=== PATIENT | female | born 1975 | race Caucasian/White ===

== ENCOUNTER 2017-12-31 10:12 | Inpatient (IN) ==
[2017-12-31] MEDS ORDERED: cefOXitin 2,000 MG in Water for inj. (sterile) 20 ML 10 ML IVP ONE (10:45)
[2017-12-31] MEDS ORDERED: Ringers Solution, Lactated 1,000 ML IVC SCH (10:45)
[2017-12-31] MEDS ORDERED: Albuterol 2.5 MG/3 ML NEBULIZER IH ONE (10:45)
--- NOTE | 2017-12-31 11:04 | History & Physical Report ---
Date of Encounter: 12/31/17 Time of Encounter: 11:04 24 Hour HP Update - Instructions Instructions: If the History and Physical is less than 30 days old and was completed prior to A.M. admission and or procedure and has NOT been updated on calendar day of procedure please complete this update prior to performing procedure. - Update Patient reports changes in Medical Condition: No Changes in examination, assessment, or condition: No Changes in Medication: No Preop tests/diagnostics Reviewed: Yes Surgery Remains Indicated: Yes Consent for Planned Operative Procedure(s) Verified: Yes - Pre-Operative Checklist Preoperative Checklist Indicated: Yes Prophylactic Antibiotic Ordered: Yes Home Medications Include Beta Foster: No
--- NOTE | 2017-12-31 11:26 | Anesthesia Evaluation PreOp ---
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: Denies Any Significant HX Other Medical History: Renal (Medullary kidney disease) Anesthesia History: No Prior Anesthetic Complications, Past Anesthesia (BMT) : No Test: Negative Alcohol Use: none Drug use: none Medications and Allergies Cranberry Fruit Extract [Cranberry] 250 mg PO DAILY 12/01/17 [History] Multivitamin [One Daily Essential] 1 tab PO DAILY 12/01/17 [History] Ibuprofen [Motrin] 800 mg PO Q8HR PRN 12/31/17 [History] 3 Allergy/AdvReac Type Severity Reaction Status Date / Time Sulfa (Sulfonamide AdvReac Joint Pain Verified 12/31/17 10:41 Antibiotics) - Meds/Allergy Pre-op Review Medications Reviewed: Yes Allergies Reviewed: Yes Beta Blockers on Current Med List: No Anesthesia Results - Labs Laboratory Tests 12/03/17 12/03/17 12/10/17 11:01 11:01 10:18 Hgb 14.2 Hct 41.5 Plt Count 365 Sodium 138 Potassium 4.0 BUN 10 Creatinine 0.82 Calcium 9.1 Total Bilirubin 0.4 AST 38 ALT 50 Alkaline Phosphatase 55 Serum Total Protein 7.1 Albumin 4.3 Globulin 2.8 Carcinoembryonic Ag 3.3 Urine Test Negative Anesthesia Exam Vital Signs/O2 Sat/Glucose, Most Recent Temp Pulse Resp BP Pulse Ox 98.5 F 96 18 120/72 98 12/31/17 10:43 12/31/17 10:43 12/31/17 10:48 12/31/17 10:48 12/31/17 10:48 Weight: 83 kg .....BMI 26 NPO (# of Hours): >8 hrs - HEENT Mallampati: I Teeth: Normal - Cardiac Rhythm: Regular - Pulmonary Breath Sounds: bilateral Clear Anesthesia Assess/Plan ASA Score: 2 Modified [place] Scale for Level of Consciousness: Cooperative, oriented, and tranquil Anesthetic Plan: General Monitoring Plan: Standard Monitors Recovery Plan: PACU Anes Supervising Prov Stmt: I have participated in the evaluation of this patient. Patient informed and consented. Risks, benefits, and alternatives discussed. Patient wishes to proceed. PRE-OP: PO TYLENOL, NEURONTIN, METHADONE
[2017-12-31] MEDS ORDERED: *HR* FentaNYL (PF) 100 MCG/2 ML VIAL ONE ×2 (11:34→13:26)
[2017-12-31] MEDS ORDERED: *HR* Midazolam HCl 2 MG/2 ML VIAL ONE (11:34)
[2017-12-31] MEDS ORDERED: Dexamethasone 4 MG/ML VIAL ONE (11:34)
[2017-12-31] MEDS ORDERED: Ondansetron 4 MG/2 ML VIAL ONE (11:34)
[2017-12-31] MEDS ORDERED: *HR* Rocuronium Bromide 50 MG/5 ML VIAL ONE ×2 (11:34→13:23)
[2017-12-31] MEDS ORDERED: Lidocaine -MPF 2% 2 ML VIAL ONE (11:34)
[2017-12-31] MEDS ORDERED: Ketorolac 30 MG/ML VIAL ONE (11:34)
[2017-12-31] MEDS ORDERED: *HR* Propofol 200 MG/20 ML VIAL IVP ONE (11:34)
[2017-12-31] MEDS ORDERED: Gabapentin 300 MG CAPSULE PO ONE (11:36)
[2017-12-31] MEDS ORDERED: *HR* Methadone 10 MG TABLET PO ONE (11:39)
[2017-12-31] MEDS ORDERED: Lidocaine -MPF 4% 5 ML AMPUL ONE (12:34)
[2017-12-31] MEDS ORDERED: *HR* Promethazine 25 MG/ML VIAL IVP PRN (14:25)
[2017-12-31] MEDS ORDERED: Albuterol 2.5 MG/3 ML NEBULIZER IH PRN (14:25)
[2017-12-31] MEDS ORDERED: MORPHINE SUL Oral CONC 10 MG/0.5 ML ORAL.SYG SL PRN (14:25)
[2017-12-31] MEDS ORDERED: *HR* Meperidine 25 MG/ML SYRINGE IVP PRN (14:25)
[2017-12-31] MEDS ORDERED: Neostigmine Methylsulfate 3 MG/3 ML SYRINGE ONE (14:49)
[2017-12-31] MEDS ORDERED: *HR* Morphine 10 MG/ML VIAL ONE (14:53)
--- NOTE | 2017-12-31 15:56 | Anesthesia Evaluation Post Op ---
Date of Encounter: 12/31/17 Time of Encounter: 15:56 Notes: Patient's vital signs have been reviewed. Patient is stable postoperatively and has adequately recovered from anesthesia. Patient is determined to have stable airway patency and respiratory function including respiratory rate and oxygen saturation. Patient has a stable heart rate, blood pressure and adequate hydration. Patients mental status is acceptable. Patients temperature is appropriate. Pain and nausea are adequately controlled. - Discharge PostOp Status: Transfer Patient to floor
[2017-12-31] MEDS ORDERED: Ondansetron 4 MG/2 ML VIAL IVP PRN (17:39)
[2017-12-31] MEDS ORDERED: Naloxone 0.4 MG/ML INJ IVP PRN (17:39)
[2017-12-31] MEDS: Ketorolac 15 MG/ML VIAL IVP SCH (17:59)
[2017-12-31] MEDS: *HR* Heparin 5,000 UNIT/ML VIAL SQ SCH (17:59)
[2017-12-31] MEDS: 0.9 % Sodium Chloride 1,000 ML IVC SCH (17:59)
[2017-12-31] MEDS: OXYCODONE Oral CONC 10 MG/0.5 ML ORAL.SYG SL PRN (19:35)
[2017-12-31] MEDS: Nicotine 14 MG PATCH.TD24 TD SCH (21:11)
[2018-01-01] MEDS: Ketorolac 15 MG/ML VIAL IVP SCH ×2 (00:20→05:26)
[2018-01-01] MEDS: OXYCODONE Oral CONC 10 MG/0.5 ML ORAL.SYG SL PRN (00:20)
[2018-01-01] MEDS: *HR* Heparin 5,000 UNIT/ML VIAL SQ SCH ×2 (05:26→17:09)
[2018-01-01] MEDS: 0.9 % Sodium Chloride 1,000 ML IVC SCH (05:27)
[2018-01-01 05:54] LABS: Basophils % 0.1 %; Hematocrit 37.1 % (35.3-44.9); Hemoglobin 12.7 g/dL (11.5-15.4); Immature Granulocytes % 0.4 % (0-4); Lymphocytes # 1.1 K/mcL (0.6-4.6); Lymphocytes % 6.5 %; Mean Corpuscular HGB Conc 34.2 g/dL (31.6-35.5); Mean Corpuscular Hemoglobin 30.1 pg (28.0-33.3); Mean Corpuscular Volume 87.9 fL (83.0-100.0); Mean Platelet Volume 8.7 fL (9.4-12.4); Monocytes # 0.7 K/mcL (0.0-1.3); Neutrophils # 14.4 K/mcL (1.6-8.9); Platelet Count 270 K/mcL (140-400); Red Blood Count 4.22 M/mcL (3.82-4.97); Red Cell Distribution Width 12.4 % (11.5-14.5)
[2018-01-01 06:21] LABS: BUN/Creatinine Ratio 21 (6-26); Blood Urea Nitrogen 16 mg/dL (6-20); Carbon Dioxide 21 mEq/L (23-29); Chloride 108 mEq/L (98-107); Glucose 125 mg/dL (70-105); Osmolality,Calculated 283 (280-300); Potassium 3.9 mEq/L (3.5-5.1); Sodium 135 mEq/L (136-145); eGFR For African Americans > 60 (> 60); eGFR For Non-African Americans > 60 (> 60)
--- NOTE | 2018-01-01 06:34 | General Surgery Progress Note ---
Date of Encounter: 01/01/18 Time of Encounter: 07:15 - Assessment and Plan (1) S/P partial colectomy Current Visit: Yes Status: Acute Patient had a laprscopic takedown of splenic flexure portion of colon to remove mass identified on colonoscopy with anastamosis of colon. Patient also received stapling of base of appendix. patient tolerated procedure well Dressings c/D/I Plan: Advance to full liquid diet d/c rondon Stop Toradol, IVF, IV zofran start PO percocet 5/325, Standing Ibuprofen 800mg, SL Zofran continue to monitor Pathology pending concern for colon CA. Subjective Patient reports: no new complaints, tolerating liquids well, no flatus, no bowel movement, afebrile Narrative: 42 F POD #1 S/p laprscopic takedown of splenic flexure portion of colon to remove mass identified on colonoscopy with anastamosis of colon. Patient also received stapling of base of appendix. Patient reports she is doing well. She reports some abdominal tenderness, but otherwise pain is well controlled. Patient still had rondon in at time of examining patient. Patient has not had flatus or bowel movement yet. She is handlign her clear liquid diet well. Patient denies N, V, D, Fever. Objective Vital Signs - Last 8 Hours Temp Pulse Resp BP Pulse Ox 01/01/18 03:31 98.2 F 75 15 98/60 94 12/31/17 23:55 98.4 F 73 15 102/61 94 Intake and Output 12/31/17 12/31/17 01/01/18 15:59 23:59 07:59 Intake Total 1000 / 1000 Output Total 50 / 50 125 / 125 350 / 350 Balance -50 / -50 -125 / -125 650 / 650 Intake: IV Fluids 1000 / 1000 0.9 % Sodium Chloride 1,000 ML 1000 / 1000 @ 90 mls/hr IVC .[id number] [facility] Rx# :[id number] Oral 0 / 0 Output: Estimated Blood Loss 50 / 50 Urine Amount (Catheter) 125 / 125 Catheter 350 / 350 Other: Weight 82.554 kg 82.7 kg Patient Weight 01/01/18 23:59 Weight 82.7 kg - General physical appearance well developed, well nourished, no distress - ENT normal nares, normal mucosa, no hearing loss - Neck Neck exam: trachea midline - Respiratory normal expansion, normal respiratory effort, clear to auscultation - Cardiovascular Cardiovascular exam: Present: RRR, no murmurs/rubs/gallops - Abdomen Abdomen: Present: bowel sounds present, tender Abdominal Tenderness: RLQ, LLQ - Incision Incision: Present: clean and dry, intact - Integumentary no rash, no abnormal pigmentation - Neurologic normal coordination, normal sensation - Psychiatric oriented to time, oriented to person, oriented to place, speech is normal, memory intact - Labs 01/01/18 05:41 01/01/18 05:41 Diabetes panel 01/01/18 Range/Units 05:41 Sodium 135 L (136-145) mEq/L Potassium 3.9 (3.5-5.1) mEq/L Chloride 108 H (98-107) mEq/L Carbon Dioxide 21 L (23-29) mEq/L BUN 16 (6-20) mg/dL Creatinine 0.78 (0.60-1.20) mg/dL Glucose 125 H (70-105) mg/dL Calcium 8.0 L (8.6-10.3) mg/dL Calcium panel 01/01/18 Range/Units 05:41 Calcium 8.0 L (8.6-10.3) mg/dL Pituitary panel 01/01/18 Range/Units 05:41 Sodium 135 L (136-145) mEq/L Potassium 3.9 (3.5-5.1) mEq/L Chloride 108 H (98-107) mEq/L Carbon Dioxide 21 L (23-29) mEq/L BUN 16 (6-20) mg/dL Creatinine 0.78 (0.60-1.20) mg/dL Glucose 125 H (70-105) mg/dL Calcium 8.0 L (8.6-10.3) mg/dL Adrenal panel 01/01/18 Range/Units 05:41 Sodium 135 L (136-145) mEq/L Potassium 3.9 (3.5-5.1) mEq/L Chloride 108 H (98-107) mEq/L Carbon Dioxide 21 L (23-29) mEq/L BUN 16 (6-20) mg/dL Creatinine 0.78 (0.60-1.20) mg/dL Glucose 125 H (70-105) mg/dL Calcium 8.0 L (8.6-10.3) mg/dL - VTE Documentation of Mechanical Device: Intermittent pneumatic compression device Consult Discharge Plan - Plan Referrals: Boston Neil DO [Partnered Physician] - 01/13/18 9:10 am
[2018-01-01] MEDS: Nicotine 14 MG PATCH.TD24 TD SCH (09:29)
[2018-01-01] MEDS ORDERED: Ondansetron ODT 4 MG TAB.RAPDIS SL PRN (10:32)
[2018-01-01] MEDS ORDERED: *HR* OxyCODONE/APAP 5/325 TABLET PO PRN (10:32)
[2018-01-01] MEDS: Ibuprofen 800 MG TABLET PO SCH ×2 (11:26→17:09)
--- NOTE | 2018-01-01 13:19 | Operative Note ---
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 After adequate sedation and anesthesia the abdomen was prepped and draped. The patient was rolled slightly onto her right side with approximately 15 degrees rotation. To talk like to place the umbilicus and a pneumoperitoneum was created with fresh needle. Once in place a 12 mm cannula was placed level of the umbilicus. I was able to identify a depressed area of the distal transverse colon and splenic flexure. 3 other cannulas were then she tediously placed in the right lower quadrant and left lower quadrant and right upper quadrant once all ports were in place robot was docked. Small bowel was swept out of the area of concern the proximal jejunum was visualized as well as the ligament of Treitz. The mesentery was scored just above the ligament of Treitz. A window was created in the retroperitoneal space. The vascular pedicle was taken with a vessel sealer. And the mesentery was scored towards the proximal and distal splenic flexure. Once it been completed then the proximal distal portion the colon were stapled with a 45 mm CLEMENTINE loads 4. Once the colon been fully resected it was placed in the left upper quadrant. Adequate length had been identified and the distal transverse colon was approximated to the descending colon. A pair of scissors utilizing the cut mode on the electrocautery unit was used to score the colon and create a colotomy. The stapler was then placed within the colotomy and fired. The common enterotomy was closed with 2 individual 2-0 silk sutures in running fashion. Buttressing sutures were also placed to help support the staple line. Once completed our attention was turned to the cecal base. I could identify what appeared to be the base of the appendix however no true appendix was identified. There was an identifiable mass that could be palpated. The terminal ileum was kept out of harm's way. The cecal base was then stapled with a 60 mm CLEMENTINE load 2. Once fully resected both specimens were brought out through the midline incision. The needles were retrieved. The fascia was closed with looped PDS suture and the skin was closed with evelyn. The 12 mm cannula sites were closed with an 0 Vicryl suture. 30 mL of Marcaine was utilized to anesthetize the incisions.
[2018-01-02] MEDS: Ibuprofen 800 MG TABLET PO SCH (00:05)
[2018-01-02] MEDS: *HR* Heparin 5,000 UNIT/ML VIAL SQ SCH (05:25)
[2018-01-02] MEDS ORDERED: cefTRIAXone 2,000 MG in Water for inj. (sterile) 20 ML IVP ONE (07:31)
[2018-01-02] MEDS: Ipratropium/Albuterol Neb 3 ML IH SCH ×2 (07:46→09:36)
[2018-01-02] MEDS ORDERED: cefTRIAXone 2,000 MG in Water for inj. (sterile) 20 ML 20 ML IVP ONE (08:00)
[2018-01-02] MEDS: Nicotine 14 MG PATCH.TD24 TD SCH (09:45)
[2018-01-02 10:55] VITALS: BP 120/81
--- NOTE | 2018-01-02 11:35 | Discharge Summary ---
Date of Encounter: 01/02/18 Time of Encounter: 13:09 - Discharge Diagnosis (1) S/P partial colectomy Priority: Primary Status: Acute (2) Productive cough Priority: Secondary Status: Acute (3) Smoking history Priority: Secondary Status: Chronic (4) COPD (chronic obstructive pulmonary disease) Priority: Secondary Status: Chronic Qualifiers: COPD type: unspecified COPD Qualified Code(s): J44.9 - Chronic obstructive pulmonary disease, unspecified General Surgery Exam Initial Vital Signs Temp Pulse Resp BP Pulse Ox 98.5 F 96 18 120/72 98 12/31/17 10:43 12/31/17 10:43 12/31/17 10:43 12/31/17 10:43 12/31/17 10:43 VITAL SIGNS: Reviewed. See [facility] GENERAL: In no apparent distress. HEENT: Normocephalic, atraumatic, pupils are equal and reactive, extraocular motions intact, oropharynx is pink and moist, there is no neck adenopathy or JVD noted. CHEST/RESPIRATORY: The thorax is free from signs of trauma. Lung sounds: clear to auscultation, normal respiratory effort CARDIAC: Regular rate and rhythm. Normal S1 and S2, without murmurs, gallops, or rubs. VASCULAR: No Edema. 2+ peripheral pulses. ABDOMEN: soft, expected postoperative tenderness, active bowel sounds, nondistended. Positive b.m. today. INCISION: Surgical incisions are clean, dry, and intact. There are no signs of cellulitis or infection noted. MUSCULOSKELETAL: Good range of motion of all major joints. Extremities without clubbing, cyanosis or edema. NEUROLOGIC EXAM: Alert and oriented x 3. Speech normal. Follows commands. PSYCHIATRIC: Mood normal. SKIN: No rash or lesions. - Hospital Course Hospital course: Ms. Martinez is a 42 year old female who presented on 12/31/2017 for an elective robotic colon resection. She underwent a splenic flexure resection with stapled anastomosis due to splenic flexure colon cancer and appendiceal mass on presentation date. Her hospital course was complicated by increased white blood cell count and productive sputum cough on 01/02/2018. Patient notes a significant smoking history of greater than a pack per day for over 10 years. She states she quit smoking on Friday prior to her admission. Her chest x- ray showed new patchy infiltrates consistent with new airspace disease versus atelectasis. She was treated empirically for possible CHP versus acute bronchitis given her smoking history. She is ambulating avoiding without difficulty, vital signs are stable, tolerating a soft diet without nausea or vomiting, and abdominal discomfort is well-controlled. She will begin discharge planning to home with a follow-up in the office with Dr. Neil in approximately 2 weeks. She is also given a prescription for nicotine patches, per her request, and recommended follow-up with her primary care provider. Her final pathology remains pending at the time of discharge. Time spent discussing smoking cessation with patient: 3 to 10 minutes - Time Spent with Patient Total time spent providing and/or coordinating discharge services: Less than 30 minutes - Discharge Medications Prescriptions: Ibuprofen [Motrin] 600 mg PO Q6HR PRN #30 tablet PRN Reason: Mild Pain Ondansetron ODT [Zofran ODT] 4 mg SL Q6HR PRN #15 tab.rapdis PRN Reason: Nausea And Vomiting OxyCODONE/APAP 5/325 [Percocet 5/325 MG] 1 each PO Q6HR PRN 7 Days #28 tablet PRN Reason: Breakthrough Pain Amoxicillin/Clavulanate [Augmentin] 875 mg PO BIDWM #20 tablet Docusate [Colace] 100 mg PO BID #30 capsule Nicotine Patch [Nicoderm] 14 mg TD DAILY #14 patch.td24 Home Medications: Cranberry Fruit Extract [Cranberry] 250 mg PO DAILY 12/01/17 [History] Multivitamin [One Daily Essential] 1 tab PO DAILY 12/01/17 [History] Ibuprofen [Motrin] 800 mg PO Q8HR PRN 12/31/17 [History] Amoxicillin/Clavulanate [Augmentin] 875 mg PO BIDWM #20 tablet 01/02/18 [Rx] Docusate [Colace] 100 mg PO BID #30 capsule 01/02/18 [Rx] Ibuprofen [Motrin] 600 mg PO Q6HR PRN #30 tablet 01/02/18 [Rx] Nicotine Patch [Nicoderm] 14 mg TD DAILY #14 patch.td24 01/02/18 [Rx] Ondansetron ODT [Zofran ODT] 4 mg SL Q6HR PRN #15 tab.rapdis 01/02/18 [Rx] OxyCODONE/APAP 5/325 [Percocet 5/325 MG] 1 each PO Q6HR PRN 7 Days #28 tablet [Rx] Allergies/Adverse Reactions: 3 Allergy/AdvReac Type Severity Reaction Status Date / Time Sulfa (Sulfonamide AdvReac Joint Pain Verified 12/31/17 10:41 Antibiotics) Date of admission: 12/31/17 16:25 Primary care physician: Sarah Sawyer Discharging clinician: Boston Neil ([employer]) Anticipated date of discharge: 01/02/18 - Impressions ITS Impressions Chest X-Ray 01/02/18 07:19 IMPRESSION: New patchy linear opacity in the left lower lobe could represent developing pneumonia and/or atelectasis. D/ / Jaun Hammer MD / Jaun Hammer MD Interpreting Provider: Jaun Hammer MD - Patient Status Disposition: Home, Self-Care Condition: Good Functional capacity at discharge: independent ambulation Overall status at discharge: patient is progressing back to baseline - Discharge Instructions Instructions: How to Stop Smoking (DC), Low Fiber Diet (GEN), Cigarette Smoking and Your Health (GEN), Colectomy (DC) Follow Up With: Boston Neil DO [Partnered Physician] - 01/13/18 9:10 am Additional Instructions: General Surgical Discharge Instructions 1. No pushing, pulling, or lifting greater than 15 lbs for 2-4 weeks (depending upon procedure). 2. You may shower beginning today, but no tub baths, soaking, or swimming for 2 weeks. 3. You may resume driving when you are off narcotics and are safe to react in a car. 4. Take ibuprofen every 6 hours for discomfort. If this does not relieve discomfort, you may take the as needed Percocet. Take narcotics as directed. Do not take more narcotics then directed and do not share your narcotics with any other person. Do not drink alcohol while on narcotics. 5. Take stool softeners (Colace) or a water based laxative (Miralax) while taking narcotics. You may hold for loose stools. 6. Report any fevers greater than 100.5F, increase abdominal discomfort, drainage that looks like pus, increased redness or pain at the surgical site, or any vomiting. 7. Report any pain in the calves, shortness of breath, or rapid heartbeat. 8. Follow-up in the office as directed. 9. Take the antibiotics prescribed to you as directed. Do not stop antibiotics without talking to your provider. - Diet and Activity Activity: increase activity as tolerated Diet: other (low fiber diet)
[2018-01-02] MEDS ORDERED: Ibuprofen 600 MG TABLET PO SCH (12:00)
== END 2018-01-02 13:04 | disposition home or self-care (01) | DRG 330 ==
LOC: SAMDAY 10:12 → 3ANU 16:25
PROVIDERS: ADMIT Surgery; ATTEND Surgery